=== PATIENT | female | born 1985 | race Caucasian/White ===

== ENCOUNTER 2019-03-03 12:36 | Inpatient (IN) | payer OTHER ==
[~2019-03-03] VITALS: Ht 149.9 cm; Wt 2.7 kg
[~2019-03-03 12:36] MED LIST: PRENATABS FA T1 EACH PO
[2019-03-24] MEDS ORDERED: OBSTETRIX ONE1 EACH PO (08:18)
== END 2019-03-24 10:13 | disposition home or self-care (01) | DRG 788 ==
LOC: OB/GYN 03-21 07:00 → O/R 03-21 18:07 → OB/GYN 03-21 18:31
PROVIDERS: ADMIT Obstetrics & Gynecology Maternal & Fetal Medicine
PROC: 4A1HXCZ Monitoring of Products of Conception, Cardiac Rate, External Approach (ICD-10-PCS; 2019-03-21)
PROC: 10D00Z1 Extraction of Products of Conception, Low, Open Approach (ICD-10-PCS; principal; 2019-03-21 07:00)
DX: O82 Encounter for cesarean delivery without indication (principal); Z3A.39 39 weeks gestation of pregnancy; Z37.0 Single live birth

== ENCOUNTER 2023-05-08 16:13 | Inpatient (IN) | payer OTHER ==
[~2023-05-08] VITALS: Ht 149.9 cm; Wt 63.0 kg
[~2023-05-08 16:13] MED LIST changes: +OBSTETRIX ONE1 EACH PO
[2023-05-08 17:26] LABS: URINE APPEARANCE Cloudy; URINE BACTERIA 313.7 uL (0.0-1933); URINE BILIRRUBIN Negative (NEGATIVE); URINE BLOOD Moderate; URINE COLOR Yellow; URINE EPITHELIAL CELLS 3.7 uL (0.0-38.8); URINE GLUCOSE Negative (NEGATIVE); URINE LEUKOCYTE Negative; URINE NITRATE Negative; URINE PROTEIN Negative (NEGATIVE); URINE RBC 15.5 uL (0.0-20.8)
[2023-05-08 17:36] LABS: HEMATOCRIT 40.1 % (36.0-45.00); HEMOGLOBIN 13.6 g/dL (12.0-15.00); MEAN CELL VOLUME 90.1 fL (80.00-100.00); MEAN CORPUSCULAR HEMOGLOBIN 30.7 pg (27.00-32.0); RED BLOOD COUNT 4.45 M/uL (4.00-6.00); RED CELL DISTRIBUTION WIDTH 12.9 % (11.5-14.5)
[2023-05-08 17:45] LABS: PLATELET COUNT 48 K/uL (150-450)
[2023-05-08] MEDS ORDERED: 0.9 % SODIUM CHLORIDE 1,000 ML IV SCH (17:45)
[2023-05-08 17:46] LABS: INR 0.94; PARTIAL THROMBOPLASTIN TIME 30.5 SECONDS (22.0-34.0); PROTHROMBIN TIME 9.9 SECONDS (9.0-11.5)
[2023-05-08 17:57] LABS: ALBUMIN 3.5 gm/dL (3.4-5.0); BILIRUBIN TOTAL 0.64 mg/dL (0.3-1.2); CALCIUM 8.4 mg/dL (8.5-10.1); CREATININE SERUM 0.64 mg/dL (0.55-1.02); GLOBULINA 4.2 G/DL (2.4-3.5); POTASSIUM 3.69 mEq/L (3.5-5.1); TOTAL PROTEIN 7.7 gm/dL (6.4-8.2)
[2023-05-08] MEDS ORDERED: ONDANSETRON HCL 2 MG/ML VIAL IV PRN (18:00)
[2023-05-08] MEDS ORDERED: METHYLPREDNISOLONE SOD SUCC 125 MG VIAL IV STA (18:01)
[2023-05-08] MEDS ORDERED: METHYLPREDNISOLONE SOD SUCC 40 MG VIAL IV SCH (18:02)
[2023-05-08] MEDS ORDERED: PRAMOXINE HCL/CALAMINE 180 ML BOTTLE TOP SCH (18:05)
[2023-05-08] MEDS ORDERED: ACETAMINOPHEN 500 MG GEL..CAP PO PRN (18:15)
[2023-05-08] MEDS ORDERED: FAMOTIDINE/PF 20 MG/2 ML VIAL IV PUSH SCH (21:00)
[2023-05-09 05:22] LABS: HEMOGLOBIN 12.7 g/dL (12.0-15.00); MEAN CELL VOLUME 90.2 fL (80.00-100.00); MEAN CORPUSCULAR HEMOGLOBIN 30.3 pg (27.00-32.0); MEAN CORPUSCULAR HGB CONC 33.6 g/dl (32.0-36.0); RED BLOOD COUNT 4.21 M/uL (4.00-6.00); RED CELL DISTRIBUTION WIDTH 13.1 % (11.5-14.5)
[2023-05-09 05:23] LABS: PLATELET COUNT 59 K/uL (150-450)
[2023-05-09 05:37] LABS: ALBUMIN 3.4 gm/dL (3.4-5.0); BILIRUBIN TOTAL 0.64 mg/dL (0.3-1.2); BILIRUBIN,CONJUGATED 0.17 mg/dL (0.0-0.2); BILIRUBIN,UNCONJUGATED 0.47 mg/dL (0.0-0.6); TOTAL PROTEIN 7.7 gm/dL (6.4-8.2)
[2023-05-09] MEDS ORDERED: TEMAZEPAM 15 MG CAPSULE PO SCH (21:00)
[2023-05-10 05:35] LABS: HEMATOCRIT 35.7 % (36.0-45.00); HEMOGLOBIN 12.3 g/dL (12.0-15.00); MEAN CORPUSCULAR HEMOGLOBIN 30.9 pg (27.00-32.0); MEAN CORPUSCULAR HGB CONC 34.4 g/dl (32.0-36.0); RED BLOOD COUNT 3.97 M/uL (4.00-6.00); RED CELL DISTRIBUTION WIDTH 13.2 % (11.5-14.5)
[2023-05-10 06:22] LABS: PLATELET COUNT 79 K/uL (150-450)
[2023-05-10] MEDS ORDERED: METHYLPREDNISOLONE SOD SUCC 40 MG VIAL IV SCH (21:00)
[2023-05-11 05:16] LABS: HEMATOCRIT 33.1 % (36.0-45.00); HEMOGLOBIN 11.3 g/dL (12.0-15.00); MEAN CORPUSCULAR HEMOGLOBIN 30.7 pg (27.00-32.0); MEAN CORPUSCULAR HGB CONC 34.1 g/dl (32.0-36.0); RED BLOOD COUNT 3.68 M/uL (4.00-6.00); RED CELL DISTRIBUTION WIDTH 13.4 % (11.5-14.5)
[2023-05-11 05:17] LABS: PLATELET COUNT 88 K/uL (150-450)
[2023-05-11 05:28] LABS: CALCIUM 8.2 mg/dL (8.5-10.1); CREATININE SERUM 0.61 mg/dL (0.55-1.02); GFR 110.98; POTASSIUM 3.86 mEq/L (3.5-5.1)
[2023-05-11] MEDS ORDERED: BUTALB/ACETAMINOPHEN/CAFFEINE 1 TAB TABLET PO STA (16:57)
[2023-05-11] MEDS ORDERED: BISACODYL 5 MG TABLET.EC PO STA (16:58)
[2023-05-11] MEDS ORDERED: BUTALB/ACETAMINOPHEN/CAFFEINE 1 TAB TABLET PO PRN (18:00)
[2023-05-12 07:19] LABS: HEMATOCRIT 33.2 % (36.0-45.00); HEMOGLOBIN 11.2 g/dL (12.0-15.00); MEAN CELL VOLUME 90.4 fL (80.00-100.00); MEAN CORPUSCULAR HEMOGLOBIN 30.4 pg (27.00-32.0); MEAN CORPUSCULAR HGB CONC 33.6 g/dl (32.0-36.0); RED BLOOD COUNT 3.68 M/uL (4.00-6.00); RED CELL DISTRIBUTION WIDTH 13.5 % (11.5-14.5)
[2023-05-12 07:52] LABS: PLATELET COUNT 105 K/uL (150-450)
[2023-05-12] MEDS ORDERED: BISACODYL 5 MG TABLET.EC PO SCH (09:00)
[2023-05-12] MEDS ORDERED: BUTALB-ACETAMI1 EAC2 PO (17:56)
[2023-05-12] MEDS ORDERED: FLEET BISACODYL5 MG PO (17:57)
== END 2023-05-12 18:58 | disposition home or self-care (01) | DRG 866 ==
LOC: MEDJ 16:13
PROVIDERS: ADMIT Internal Medicine Hematology & Oncology; ATTEND Internal Medicine Hematology & Oncology
PROC: 4A12X4Z Monitoring of Cardiac Electrical Activity, External Approach (ICD-10-PCS; principal; 2023-05-08)
DX: A91 Dengue hemorrhagic fever (principal); D69.3 Immune thrombocytopenic purpura; E86.0 Dehydration; G43.009 Migraine without aura, not intractable, without status migrainosus